=== PATIENT | female | born 1970 | race Caucasian/White ===

== ENCOUNTER 2018-11-08 12:01 | Emergency (ER) | payer BC ==
[2018-11-08] MEDS ORDERED: Albuterol/Ipratropium 3.0-0.5 MG/3 ML Neb Soln NEB ONE (12:29)
[2018-11-08 12:48] LABS: CHLORIDE,CL 105 mmol/L (98-107); SODIUM,NA 142 mmol/L (136-145)
[2018-11-08] MEDS ORDERED: methylPREDNISolone Sodium Succinate 125 MG/2 ML SDV IM ONE (13:13)
--- NOTE | 2018-11-08 14:12 | EDM.PDOC ---
ED HPI GENERAL MEDICAL PROBLEM - General Chief Complaint: General Stated Complaint: THROAT IRRITATION/COUGH Time Seen by Provider: 11/08/18 12:13 Source of Information: Reports: Patient History Limitations: Reports: No Limitations - History of Present Illness INITIAL COMMENTS - FREE TEXT/NARRATIVE: Patient comes in with 4 day history of cough and irritated throat. No fevers or chills. No GI changes. Denies UTI complaints/ changes. Throat feels "tight", but not really sore. No runny nose/ear pain/visual changes. No one else sick at home. Denies wheezing, cough is dry and irritating. Throat Pain Score (Numeric/FACES): 5 - Related Data Allergies Allergy/AdvReac Type Severity Reaction Status Date / Time morphine Allergy Nausea and Verified 11/08/18 12:13 Vomiting Home Meds: Home Meds Amitriptyline [Elavil] 10 mg PO BEDTIME 11/08/18 [History] Cyclobenzaprine HCl 5 mg PO DAILY PRN 11/08/18 [History] Levothyroxine Sodium [Synthroid] 175 mcg PO DAILY 11/08/18 [History] Past Medical History Psychiatric History: Reports: Anxiety Endocrine/Metabolic History: Reports: Hypothyroidism - Past Surgical History HEENT Surgical History: Reports: Other (See Below) Other HEENT Surgeries/Procedures: thyroidectomy Endocrine Surgical History: Reports: Thyroidectomy Social & Family History - Tobacco Use Smoking Status *Q: Never Smoker - Recreational Drug Use Recreational Drug Use: No Drug Use in Last 12 Months: No ED ROS GENERAL - Review of Systems Review Of Systems: ROS reveals no pertinent complaints other than HPI. ED EXAM, GENERAL - Physical Exam Exam: See Below Exam Limited By: No Limitations General Appearance: Alert, WD/WN, No Apparent Distress, Other (frequent dry cough) Eye Exam: Bilateral Eye: EOMI, PERRL Ears: Normal External Exam Nose: Normal Inspection Throat/Mouth: Normal Voice, No Airway Compromise, Other (mild erythema of throat , no exudate or swelling noted) Head: Atraumatic, Normocephalic Neck: Normal Inspection, Supple, Non-Tender, Full Range of Motion. No: Lymphadenopathy (L), Lymphadenopathy (R) Respiratory/Chest: No Respiratory Distress, Lungs Clear, Normal Breath Sounds, No Accessory Muscle Use, Chest Non-Tender Cardiovascular: Regular Rate, Rhythm, No Murmur GI/Abdominal: Soft, Non-Tender (Female) Exam: Deferred Rectal (Female) Exam: Deferred Back Exam: No: CVA Tenderness (L), CVA Tenderness (R), Muscle Spasm Extremities: Normal Inspection, Normal Capillary Refill Neurological: Alert, Oriented, Normal Cognition, Normal Gait Psychiatric: Normal Affect, Normal Mood Skin Exam: Warm, Dry, Intact Course - Vital Signs Last Recorded V/S: Last Vital Signs Temp 37.3 C 11/08/18 12:02 Pulse 88 11/08/18 12:02 Resp 18 11/08/18 12:02 BP 117/69 11/08/18 12:02 Pulse Ox 99 11/08/18 12:02 - Orders/Labs/Meds Orders: Active Orders 24 hr Category Date Time Status RT Aerosol Therapy [RC] ASDIRECTED Care 11/08/18 12:29 Active Chest 2V [CR] Stat Exams 11/08/18 12:28 Taken CULTURE STREP A CONFIRMATION [RM] Stat Lab 11/08/18 12:30 Results STREP SCRN A RAPID W CULT CONF [RM] Stat Lab 11/08/18 12:30 Results Labs: Laboratory Tests 11/08/18 11/08/18 Range/Units 12:30 12:30 WBC 8.2 (4.0-10.2) K/uL RBC 4.49 (3.77-5.09) M/uL Hgb 13.1 (11.7-15.5) g/dL Hct 38.9 (34.0-46.0) % MCV 86.6 (84.0-98.0) fL MCH 29.2 (28.2-33.3) pg MCHC 33.7 (31.7-36.0) g/dL RDW 12.8 (11.2-14.1) % Plt Count 217 (150-350) K/uL Neut % (Auto) 61.4 (45.0-80.0) % Lymph % (Auto) 27.5 (10.0-50.0) % [place] % (Auto) 6.2 (2.0-14.0) % Eos % (Auto) 4.7 (0.0-5.0) % Baso % (Auto) 0.2 (0.0-2.0) % Neut # (Auto) 5.05 (1.40-7.00) K/uL Lymph # (Auto) 2.26 (0.50-3.50) K/uL [place] # (Auto) 0.51 (0.00-1.00) K/uL Eos # (Auto) 0.39 (0.00-0.50) K/uL Baso # (Auto) 0.02 (0.00-0.20) K/uL Sodium 142 (136-145) mmol/L Potassium 3.7 (3.5-5.1) mmol/L Chloride 105 (98-107) mmol/L Carbon Dioxide 28.7 (21.0-32.0) mmol/L BUN 15 (7-18) mg/dL Creatinine 0.74 (0.51-1.17) mg/dL Est Cr Clr Drug Dosing TNP Estimated GFR (MDRD) > 60 mL/min Glucose 89 (74-106) mg/dL Calcium 9.4 (8.5-10.1) mg/dL Meds: Medications Discontinued Medications Generic Name Dose Route Start Last Admin Trade Name Freq PRN Reason Stop Dose Admin Albuterol/Ipratropium 3 ml 11/08/18 12:29 11/08/18 12:46 Duoneb 3.0-0.5 Mg/3 Ml NEB 11/08/18 12:30 3 ml ONETIME ONE Administration Methylprednisolone Sodium Succinate 125 mg 11/08/18 13:13 11/08/18 13:39 Solu-Medrol IM 11/08/18 13:14 125 mg ONETIME ONE Administration - Radiology Interpretation Free Text/Narrative:: Xray of chest unremarkable overall for acute changes. - Re-Assessments/Exams Free Text/Narrative Re-Assessment/Exam: 11/08/18 14:32 Patient afebrile, vital signs stable. Normal level of oxygenation. CBC/BMP normal. Lungs clear on exam. No swelling of uvula or pharyngeal tissue noted. Rapid strep negative, culture pending. Suspect acute viral pharyngitis/URI. Patient received DuoNeb which did not make any change in her symptoms subjectively. SoluMedrol given IM in hopes of improving subjective complaint of throat feeling 'tight'. Bottle of Phenergan/codeine cough syrup obtained from ER stock and given to patient for PRN use---1-2 tsp every 6 hours. Precautions reviewed prior to discharge. To follow up for recheck if any worsening is noted/increased SOB. Patient comfortable with plan. Departure - Departure Time of Disposition: 14:10 Disposition: Home, Self-Care 01 Condition: Good Clinical Impression: Respiratory tract infection - Discharge Information *PRESCRIPTION DRUG MONITORING PROGRAM REVIEWED*: Not Applicable *COPY OF PRESCRIPTION DRUG MONITORING REPORT IN PATIENT AURA: Not Applicable Instructions: Methylprednisolone Solution for Injection, Upper Respiratory Infection, Adult, [id number] Referrals: PCP,None [Primary Care Provider] - Forms: ED Department Discharge Additional Instructions: Observe for changes. See if you get any improvement from the steroid you were given today. Follow up as needed for worsening symptoms. We will call you if the back up strep test is positive. - My Orders Last 24 Hours: My Active Orders 11/08/18 12:28 Chest 2V [CR] Stat 11/08/18 12:29 RT Aerosol Therapy [RC] ASDIRECTED 11/08/18 12:30 CULTURE STREP A CONFIRMATION [RM] Stat STREP SCRN A RAPID W CULT CONF [RM] Stat - Assessment/Plan Last 24 Hours: My Active Orders 11/08/18 12:28 Chest 2V [CR] Stat 11/08/18 12:29 RT Aerosol Therapy [RC] ASDIRECTED 11/08/18 12:30 CULTURE STREP A CONFIRMATION [RM] Stat STREP SCRN A RAPID W CULT CONF [RM] Stat
== END 2018-11-08 14:30 | disposition home or self-care (01) ==
LOC: LL.ED 12:01
DX: J06.9 Acute upper respiratory infection, unspecified (principal); F41.9 Anxiety disorder, unspecified; E03.9 Hypothyroidism, unspecified; Z88.5 Allergy status to narcotic agent; Z79.899 Other long term (current) drug therapy
CPT/HCPCS: 36415; 71046; 80048; 85025; 87081; 87430; 94640; 96372; 99283; J2930; J7620-GY